=== PATIENT | female | born 1935 | race Caucasian/White ===

== ENCOUNTER → 2016-08-19 | Outpatient (CLI) | payer MEDICARE, BC ==
[~2016-08-19] MED LIST: ALEVE220 MG PO; CALCIUM CARBON600 MG PO; COUMADIN ** IA5 MG PO; DILANTIN100 MG PO; LEVOTHROID(SY175 MCG PO; VITAMIN D1000 UNIT PO
--- NOTE | ~2016-08-19 | ENPV ---
Vascular Lower Extremities DVT Study Procedure Demographics Patient Name HARINDER GARCIA Date of Study 08/19/2016 Patient Number [id number] Gender Female Date of 1935 Age 81 Visit Number [id number] Height Accession Number [id number] Weight Room Number BSA BMI Referring Areli Sr MD Interpreting Endy Guzmán MD Physician Otto De Luna Physician Areli rS Physician Ordering Areli Sr Nitro Man Physician Adjunct Sociology Professor Nelson Santos RD, RVT Conclusions Summary No evidence of deep vein thrombosis or superficial thrombophlebitis in the right lower extremity . Procedure Type of Study: Veins:Lower Extremities DVT Study, Lower Extremity Right. Indications for Study:Pain in Limb and Swelling of Limb. Appropriate Use Criteria:9 Patient Status:Routine. Study Location:Vascular Lab. Technical Quality:Adequate visualization. Velocities are measured in cm/s ; Diameters are measured in cm Right Lower Extremities DVT Study Measurements Right 2D and Doppler Measurements + + + + +------+------+ + !Location !Visualized!Compressibility!Thrombosis!Signal!Reflux!Reflux ! ! ! ! ! ! ! !(sec) ! + + + + +------+------+ + !GSV Thigh !Yes !Yes !None !Phasic! ! ! + + + + +------+------+ + !Common !Yes !Yes !None !Phasic! ! ! !Femoral ! ! ! ! ! ! ! + + + + +------+------+ + !Prox !Yes !Yes !None !Phasic! ! ! !Femoral ! ! ! ! ! ! ! + + + + +------+------+ + !Mid Femoral!Yes !Yes !None !Phasic! ! ! + + + + +------+------+ + !Dist !Yes !Yes !None !Phasic! ! ! !Femoral ! ! ! ! ! ! ! + + + + +------+------+ + !Popliteal !Yes !Yes !None !Phasic! ! ! + + + + +------+------+ + !Gastroc !Yes !Yes !None ! ! ! ! + + + + +------+------+ + !PTV !Yes !Yes !None ! ! ! ! + + + + +------+------+ + !Peroneal !Yes !Yes !None ! ! ! ! + + + + +------+------+ + Left Lower Extremities DVT Study Measurements Left 2D and Doppler Measurements + + + + +------+------+ + !Location !Visualized!Compressibility!Thrombosis!Signal!Reflux!Reflux ! ! ! ! ! ! ! !(sec) ! + + + + +------+------+ + !Common !Yes !Yes !None !Phasic! ! ! !Femoral ! ! ! ! ! ! ! + + + + +------+------+ + Signature dtt: JUNE SANTIAGO dtalmaz: 08/19/16 1523 Physician Self Edit
== END | disposition disaster alternative care site (69) ==
LOC: GCAR 15:06
DX: M25.551 Pain in right hip (principal); M79.89 Other specified soft tissue disorders; M62.81 Muscle weakness (generalized); M79.604 Pain in right leg; C50.512 Malignant neoplasm of lower-outer quadrant of left female breast